=== PATIENT | male | born 1990 | race American Indian/Alaskan Native ===

== ENCOUNTER 2019-03-11 08:20 | Emergency (ER) | payer OTHER ==
[2019-03-11 08:32] VITALS: BP 123/79
[2019-03-11] MEDS ORDERED: IBUPROFEN PO ONE (08:57)
--- NOTE | 2019-03-11 08:57 | Emergency Department Report ---
ED ENT HPI - General Chief complaint: Dental/Oral Stated complaint: TOOTHACHE Time Seen by Provider: 03/11/19 08:51 Source: patient Mode of arrival: Ambulatory Limitations: No Limitations - History of Present Illness Initial comments: 28-year-old -[place] male presents to the emergency room complaining of left side in all pain and swelling since this morning. Patient reports yesterday evening he was eating some crab when he broke this tooth off on this left lower jaw. He reports this morning when he woke up he started having severe pain with swelling. Patient denies any past medical history currently takes no medications on a daily basis and has no known drug allergies. MD complaint: tooth pain Onset/Timin -: hour(s) Location: tooth # (20) Severity scale (0 -10): 10 Quality: stabbing, aching, sharp Consistency: constant Associated Symptoms: toothache - Related Data Previous Rx's Medication Instructions Recorded Last Taken Type Clindamycin [Clindamycin CAP] 600 mg PO BID #14 capsule 03/11/19 Unknown Rx Ibuprofen [Motrin 600 MG tab] 600 mg PO Q8H PRN #30 tablet 03/11/19 Unknown Rx traMADol [Ultram 50 MG tab] 50 mg PO Q6HR PRN #8 tablet 03/11/19 Unknown Rx Allergies Allergy/AdvReac Type Severity Reaction Status Date / Time No Known Allergies Allergy Unverified 03/11/19 08:32 ED Dental HPI - General Chief complaint: Dental/Oral Stated complaint: TOOTHACHE Time Seen by Provider: 03/11/19 08:51 Source: patient Mode of arrival: Ambulatory Limitations: No Limitations - Related Data Previous Rx's Medication Instructions Recorded Last Taken Type Clindamycin [Clindamycin CAP] 600 mg PO BID #14 capsule 03/11/19 Unknown Rx Ibuprofen [Motrin 600 MG tab] 600 mg PO Q8H PRN #30 tablet 03/11/19 Unknown Rx traMADol [Ultram 50 MG tab] 50 mg PO Q6HR PRN #8 tablet 03/11/19 Unknown Rx Allergies Allergy/AdvReac Type Severity Reaction Status Date / Time No Known Allergies Allergy Unverified 03/11/19 08:32 ED Review of Systems ROS: Stated complaint: TOOTHACHE Other details as noted in HPI ED Past Medical Hx - Past Medical History Previous Medical History?: No - Surgical History Past Surgical History?: No - Social History Smoking Status: Current Every Day Smoker Substance Use Type: None - Medications Home Medications: Home Medications Medication Instructions Recorded Confirmed Last Taken Type Clindamycin [Clindamycin CAP] 600 mg PO BID #14 capsule 03/11/19 Unknown Rx Ibuprofen [Motrin 600 MG tab] 600 mg PO Q8H PRN #30 tablet 03/11/19 Unknown Rx traMADol [Ultram 50 MG tab] 50 mg PO Q6HR PRN #8 tablet 03/11/19 Unknown Rx ED Physical Exam - General Limitations: No Limitations General appearance: alert, in no apparent distress - Head Head exam: Present: atraumatic, normocephalic - Eye Eye exam: Present: normal appearance - Expanded ENT Exam Expanded Teeth exam: Present: fractured tooth # (20), gingival enlargement, other (left lower jaw swelling and tenderness to palpate) - Neck Neck exam: Present: normal inspection - Neurological Exam Neurological exam: Present: alert, oriented X3 - Psychiatric Psychiatric exam: Present: normal affect, normal mood - Skin Skin exam: Present: warm, dry, intact, normal color. Absent: rash ED Course Vital Signs 03/11/19 08:30 Temperature 97.9 F Pulse Rate 65 Respiratory 16 Rate Blood Pressure 123/79 O2 Sat by Pulse 100 Oximetry ED Medical Decision Making - Medical Decision Making 78-year-old -[place] male presents to the emergency room for tooth #20 pain and swelling to the gingiva. Patient was eating crabs yesterday and it down and broke tooth. Patient be placed on clindamycin 300 mg twice a day for 1 0 days patient would also be placed on ibuprofen 600 mg 3 times a day as well as tramadol every 6 hours dispense 8. Patient be also referred to community [facility]. Critical care attestation.: If time is entered above; I have spent that time in minutes in the direct care of this critically ill patient, excluding procedure time. ED Disposition Clinical Impression: Dental abscess Disposition: [id number] TO HOME OR SELFCARE Is pt being admited?: No Does the pt Need Aspirin: No Condition: Stable Instructions: Dental Abscess (ED) Additional Instructions: Complete antibiotics as prescribed. Pain medication as needed. Do not operate heavy machinery while taking tramadol. Follow up with the dentist I have listed several below for your convenience. Prescriptions: Clindamycin [Clindamycin CAP] 600 mg PO BID #14 capsule Ibuprofen [Motrin 600 MG tab] 600 mg PO Q8H PRN #30 tablet PRN Reason: Pain traMADol [Ultram 50 MG tab] 50 mg PO Q6HR PRN #8 tablet PRN Reason: Pain Referrals: [facility] [Outside] - 3-5 Days [facility] [Outside] - 3-5 Days [facility] [Outside] - 3-5 Days Forms: Work/School Release Form(ED)
== END 2019-03-11 09:10 | disposition home or self-care (01) ==
LOC: ED 08:20
DX: K04.7 Periapical abscess without sinus (principal); F17.200 Nicotine dependence, unspecified, uncomplicated; Z79.899 Other long term (current) drug therapy
CPT/HCPCS: 99282

== ENCOUNTER 2020-12-30 17:58 | Emergency (ER) | payer SELFPAY | END 2020-12-30 20:18 | disposition left against medical advice (07) | LOC: ED 17:58 | DX: K08.89 Other specified disorders of teeth and supporting structures (principal); Z53.21 Procedure and treatment not carried out due to patient leaving prior to being seen by health care provider ==